=== PATIENT | male | born 1935 | race Hispanic/Latino ===

== ENCOUNTER 2018-12-06 13:33 | Emergency (ER) | payer MEDICARE ==
[~2018-12-06] VITALS: Ht 167.6 cm; Wt 72.6 kg
[~2018-12-06 13:33] MED LIST: ASPIR 8181 MG; PRAVASTATIN SOD40 MG
--- NOTE | 2018-12-06 15:15 | Diagnostic Imaging Report ---
Exam: Right elbow radiographs- 4 views Clinical History: Status post fall. Comparison: None. Findings: No evidence of acute fracture, malalignment, or soft tissue abnormality. There is triceps enthesopathy. Impression: No acute radiographic abnormality. Signed by: Dr. Jack Fishman MD on 12/06/2018 3:12 PM
--- NOTE | 2018-12-06 15:40 | Diagnostic Imaging Report ---
EXAMINATION: Head CT HISTORY: Status post fall, head trauma, forehead laceration COMPARISON: None. TECHNIQUE: Multidetector axial images were obtained without contrast from the foramen magnum to the vertex . The images were reconstructed using brain and bone algorithms. Thin section brain images were reformatted into coronal and sagittal planes. Image quality: Motion/streaking artifact limits the evaluation of the skull base and posterior cranial fossa. Dose modulation, iterative reconstruction, and/or weight based adjustment of the mA/kV was utilized to reduce the radiation dose to as low as reasonably achievable. FINDINGS: Parenchyma: 1. Prominent cortical and subcortical encephalomalacia and volume loss in the right frontal, insular, parietal and temporal lobes, with compensatory dilatation of the right lateral ventricle, likely the sequela from remote infarct in the right MCA distribution, with involvement of the right striatum nucleus, right internal capsule and caudothalamic region. Associated atrophy of the right cerebral peduncle and endy (wall area and degeneration. 2. No mass or hemorrhage. No CT evidence of acute territorial vascular insult. Extra-axial spaces:No abnormal density. No extra-axial fluid collections Brain volume: Normal for age. Ventricles: No hydrocephalus or displacement. Arteries: No density suggestive of thrombus. Dural sinuses: No abnormal density. Extra-axial spaces: No abnormal density. Foramen magnum: No mass, Chiari malformation, or basilar invagination. Sella: No obvious mass. Paranasal/mastoid sinuses: Imaged portions unremarkable. Skull/Scalp: No lytic or blastic lesions. Small left frontotemporal swelling/laceration and left superior parietal scalp swelling without underlying fractures. IMPRESSION: 1. No acute posttraumatic intracranial bleed. 2. Small left frontotemporal soft tissue swelling/laceration without underlying fractures. 3. 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 Signed by: Dr. Carito Mata M.D. on 12/06/2018 3:37 PM
--- NOTE | 2018-12-06 15:44 | Diagnostic Imaging Report ---
Exam: Cervical spine radiographs - 4 views. Clinical History: Head injury status post fall. Comparison: None. Findings: Exam somewhat limited by limited mobility. C1 through the mid aspect of C7 is visualized. The lower aspect of C7 is partially obscured. No evidence of prevertebral soft tissue edema. No evidence of acute fracture or malalignment. C1-C2 alignment is maintained. There are mild degenerative disc and facet degenerative changes of the cervical spine. There are surgical clips which project over the hypopharynx. Impression: No acute radiographic abnormality. Lower aspect of C7 is partially obscured on lateral radiograph secondary to limited patient mobility, although the frontal radiograph appears grossly unremarkable. If there is clinical concern for lower cervical bony injury, a CT may be considered for further evaluation. Mild degenerative disc and facet degenerative changes of the cervical spine. Signed by: Dr. Jack Fishman MD on 12/06/2018 3:41 PM
[2018-12-06] MEDS ORDERED: ASPIRIN 81 MG CHEW TAB PO ONE (17:15)
[2018-12-06 17:18] LABS: BASOPHILS % 0.2 % (0.0-1.0); EOSINOPHILS % 0.1 % (0.0-6.0); HEMATOCRIT 44.1 % (38.2-49.6); HEMOGLOBIN 14.5 g/dL (14.0-18.0); LYMPHOCYTES # (AUTO) 0.5 (1.0-3.2); LYMPHOCYTES % 3.7 % (18.0-39.1); MEAN CORPUSCULAR HEMOGLOBIN 27.2 pg (28-32); MEAN CORPUSCULAR HGB CONC 32.9 g/dL (31-35); MEAN CORPUSCULAR VOLUME 82.6 fL (81-99); MONOCYTES % 7.6 % (4.4-11.3); NEUTROPHILS # (AUTO) 12.1 (2.1-6.9); NEUTROPHILS % 87.7 % (38.7-80.0); PLATELET COUNT 229 x10e3/uL (140-360); RED BLOOD COUNT 5.34 x10e6/uL (4.3-5.7); RED CELL DISTRIBUTION WIDTH 14.1 % (11.7-14.4)
[2018-12-06 17:31] LABS: ANION GAP 16.8 mmol/L (8-16); CREATININE, SERUM 2.04 mg/dL (0.72-1.25); POTASSIUM 3.8 mmol/L (3.5-5.1)
[2018-12-06 17:38] LABS: CREATINE KINASE MB 2.6 ng/mL (0-5.0)
[2018-12-06 18:02] LABS: BILIRUBIN,URINE NEGATIVE (NEGATIVE); CLARITY,URINE SL CLOUDY (CLEAR); COLOR,URINE STRAW (YELLOW); KETONES,URINE NEGATIVE (NEGATIVE); LEUKOCYTE ESTERASE ,URINE NEGATIVE (NEGATIVE); NITRITE,URINE NEGATIVE (NEGATIVE); PROTEIN,URINE DIPSTICK 2+ (NEGATIVE); URINE UROBILINOGEN 0.2 mg/dL (0.2 - 1)
[2018-12-06 18:18] LABS: AMORPHOUS SEDIMENT,URINE MODERATE (FEW); BACTERIA,URINE MANY /HPF; EPITHELIAL CELLS,URINE FEW /LPF
[2018-12-06 18:42] VITALS: BP 130/70
[2018-12-06] MEDS ORDERED: CEFTRIAXONE SOD 1 GM/NS 50 ML 50 ML IV ONE (18:45)
== END 2018-12-06 19:30 | disposition home or self-care (01) ==
LOC: ER 13:33
DX: S01.112A Laceration without foreign body of left eyelid and periocular area, initial encounter (principal); M25.521 Pain in right elbow; W01.0XXA Fall on same level from slipping, tripping and stumbling without subsequent striking against object, initial encounter; Y92.008 Other place in unspecified non-institutional (private) residence as the place of occurrence of the external cause; N30.00 Acute cystitis without hematuria; K04.7 Periapical abscess without sinus; I25.10 Atherosclerotic heart disease of native coronary artery without angina pectoris
CPT/HCPCS: 36415; 70450; 72040; 73080; 80048; 81001; 82550; 82553; 84484; 85025; 87086; 93005; 99284; J0696

== ENCOUNTER 2020-04-22 04:48 | Emergency (ER) | payer MEDICARE, OTHER ==
[~2020-04-22] VITALS: Ht 167.6 cm; Wt 72.6 kg
--- NOTE | 2020-04-22 05:28 | Emergency Department Note ---
History of Present Illnes History of Present Illness Chief Complaint: COVID PUI History of Present Illness This is a 85 year old male arrives to the ED with complaints of cough shortness of breath. Patient recently discharged from [place] for bradycardia. Patient's daughter states father was complaining of congestion and dust, she states he called her today to take her to the emergency department which is not like him. Arrival Mode: Car Onset (how long ago): day(s) Duration (how long): day(s) Timing of current episode: constant Progression: worsening Chronicity: new Relieving factors: none Associated symptoms: Reports cough, Reports fever/chills, Reports headaches, Reports loss of appetite (VASILE GONZALEZ DO) Past Medical/Family History Physician Review I have reviewed the patient's past medical and family history. Any updates have been documented here. 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 HTN Other Surgery: PROSTATE CA LT CAROTID (VASILE GONZALEZ DO) Other Last Tetanus: UNKNOWN (VASILE GONZALEZ DO) Review of Systems Review of Systems Constitutional: Reports as per HPI, Reports chills, Reports diaphoresis, Reports fever, Reports malaise, Reports weakness EENTM: Reports no symptoms Cardiovascular: Reports no symptoms Respiratory: Reports as per HPI, Reports chest congestion, Reports cough, Reports pain on inspiration, Reports pain with cough, Reports dyspnea Gastrointestinal: Reports no symptoms Genitourinary: Reports no symptoms Musculoskeletal: Reports no symptoms Integumentary: Reports no symptoms Neurological: Reports no symptoms Psychological: Reports no symptoms Endocrine: Reports no symptoms Hematological/Lymphatic: Reports no symptoms (VASILE GONZALEZ, ) Physical Exam Related Data Allergies: Coded Allergies: No Known Allergies (Unverified , 12/06/18) Vital signs reviewed: Yes (VASILE GONZALEZ DO) Physical Exam CONSTITUTIONAL Constitutional: Present well-developed, Present ill appearing HENT HENT: Present normocephalic, Present atraumatic, Present oropharynx clear/moist, Present nose normal HENT L/R: Present left ext ear normal, Present right ext ear normal EYES Eyes: Reports PERRL, Reports conjunctivae normal NECK Neck: Present ROM normal PULMONARY Pulmonary: Present effort normal, Present breath sounds normal, Present respiratory distress (mild-moderate ) CARDIOVASCULAR Cardiovascular: Present regular rhythm, Present capillary refill normal, Present normal rate, Present tachycardia GASTROINTESTINAL Abdominal: Present soft, Present nontender, Present bowel sounds normal GENITOURINARY Genitourinary: Present exam deferred SKIN Skin: Present warm, Present dry MUSCULOSKELETAL Musculoskeletal: Present ROM normal NEUROLOGICAL Neurological: Present alert, Present oriented x 3, Present no gross motor or sensory deficits PSYCHOLOGICAL Psychological: Present mood/affect normal, Present judgement normal (VASILE GONZALEZ DO) Results Laboratory Lab results reviewed: Yes (VASILE GONZALEZ DO) Imaging Imaging results reviewed: Yes (VASILE GONZALEZ DO) Critical Care Time Critical care time exclusive o: separately billable procedures Critcal care necessary due to: shock (VASILE GONZALEZ DO) Assessment & Plan Medical Decision Making MDM 85-year-old male arrives the ED with cough and fever. Patient markedly hypoxic in the emergency department oxygen saturation the 40s. Concerns of Covid 19, patient with a recent hospitalization so healthcare associated pneumonia is in the differential diagnosis. Patient met SIRS criteria on arrival was suspected source in the lungs, patient rolled into septic shock with a lactic acid of 6.5 at 0600. Aggressive volume resuscitation done at 30 mg/kg with improvement noted. Bedside volume reassessment done in the emergency department with improvement in cap Refill and overall presentation appreciated. (VASILE GONZALEZ DO) Assessment & Plan Final Impression: (1) Septic shock (2) Pneumonia (VASILE GOZNALEZ DO) Home Meds Reported Medications Pravastatin Sodium (PRAVASTATIN SODIUM) 40 Mg Tablet 01/18/17 Aspirin (ASPIR 81) 81 Mg Tablet. 01/18/17 Physician Attestation Provider Attestation [facility] transport at bedside. Patient tolerated CPAP 5 cmH20 with oxygen saturation of 98%. (NIURKA HUERTA DO) VASILE GONZALEZ DO Apr 22, 2020 05:28 NIURKA HUERTA DO Apr 24, 2020 13:50
[2020-04-22 05:34] LABS: BASOPHILS # (AUTO) 0.1 (0.0-0.1); BASOPHILS % 0.7 % (0.0-1.0); EOSINOPHILS % 0.2 % (0.0-6.0); HEMATOCRIT 35.2 % (38.2-49.6); HEMOGLOBIN 11.2 g/dL (14.0-18.0); LYMPHOCYTES # (AUTO) 0.9 (1.0-3.2); LYMPHOCYTES % 7.4 % (18.0-39.1); MEAN CORPUSCULAR HEMOGLOBIN 27.4 pg (28-32); MEAN CORPUSCULAR HGB CONC 31.8 g/dL (31-35); MEAN CORPUSCULAR VOLUME 86.1 fL (81-99); MONOCYTES # (AUTO) 0.8 (0.2-0.8); MONOCYTES % 6.7 % (4.4-11.3); NEUTROPHILS # (AUTO) 9.6 (2.1-6.9); NEUTROPHILS % 78.8 % (38.7-80.0); PLATELET COUNT 182 x10e3/uL (140-360); RED BLOOD COUNT 4.09 x10e6/uL (4.3-5.7); RED CELL DISTRIBUTION WIDTH 16.4 % (11.7-14.4)
[2020-04-22] MEDS ORDERED: FUROSEMIDE INJ 10 MG/ML 2 ML VIAL IV ONE (05:45)
[2020-04-22 05:59] LABS: ALBUMIN 2.4 g/dL (3.5-5.0); ALBUMIN/GLOBULIN RATIO 0.6 (0.8-2.0); ANION GAP 21.1 mmol/L (8-16); CALCIUM 9.2 mg/dL (8.4-10.2); CREATININE, SERUM 2.05 mg/dL (0.72-1.25); POTASSIUM 4.1 mmol/L (3.5-5.1)
[2020-04-22 06:02] LABS: BILIRUBIN,URINE NEGATIVE (NEGATIVE); CLARITY,URINE CLEAR (CLEAR); COLOR,URINE YELLOW (YELLOW); KETONES,URINE NEGATIVE (NEGATIVE); LEUKOCYTE ESTERASE ,URINE NEGATIVE (NEGATIVE); NITRITE,URINE NEGATIVE (NEGATIVE); PROTEIN,URINE DIPSTICK NEGATIVE (NEGATIVE); URINE UROBILINOGEN 1 mg/dL (0.2 - 1)
[2020-04-22] MEDS ORDERED: SODIUM CHLORIDE 0.9% 500ML 500 ML IV STA (06:03)
[2020-04-22] MEDS ORDERED: SODIUM CHLORIDE 0.9% 1000ML 1,000 ML IV STA ×2 (06:03)
[2020-04-22] MEDS ORDERED: SODIUM CHLORIDE 0.9% 1000ML 0 ML ONE (06:12)
--- NOTE | 2020-04-22 06:13 | Diagnostic Imaging Report ---
Examination: Single AP view of the chest. COMPARISON: None. INDICATION: Respiratory distress IMPRESSION: 1. Lines and Tubes: None 2. Lungs are well-inflated. Mild elevation of the right hemidiaphragm, likely due to eventration. Patchy left retrocardiac and right lower lung airspace opacities, which may represent pneumonia (including viral) in the appropriate clinical setting. 3. Cardiomediastinal silhouette is normal. Central pulmonary venous congestion. 4. No acute bony abnormalities. Signed by: Dr. Emmanuel Velasquez M.D. on 04/22/2020 6:10 AM
[2020-04-22 06:14] LABS: BACTERIA,URINE FEW /HPF; MUCUS,URINE MANY (RARE); RBC,URINE 0-5 /HPF (0-5)
--- NOTE | 2020-04-22 07:24 | NUR ---
WALKING ROUNDS WITH ELIAZAR BRAY, NO FURTHER QUESTIONS FROM ONCOMING NURSE
[2020-04-22 08:21] LABS: LYMPHOCYTES % (MANUAL) 6 % (19-48); MONOCYTES % (MANUAL) 5 % (3.4-9.0); NEUTROPHILS % (MANUAL) 89 % (40-74)
--- NOTE | 2020-04-22 11:00 | NUR ---
REC'D REPORT FROM ASA RUTH FOR CONTINITY OF CARE
[2020-04-22] MEDS ORDERED: CEFTRIAXONE SOD 1 GM/NS 50 ML 50 ML IV STA (22:07)
[2020-04-22] MEDS ORDERED: AZITHROMYCIN 500MG/NS 250 ML 250 ML IV STA (22:07)
[2020-04-22] MEDS ORDERED: DEXAMETHASONE SOD PHOS 10 MG/1 ML VIAL IV ONE (22:15)
--- NOTE | 2020-04-22 23:25 | NUR ---
report recieved from cori samuel
--- NOTE | 2020-04-23 03:00 | NUR ---
patient repositioning provided
--- NOTE | 2020-04-23 07:18 | NUR ---
bedside rounds done with hammad rn, oncoming nurse has no further questions
--- NOTE | 2020-04-23 07:23 | Diagnostic Imaging Report ---
Examination: Single AP view of the chest. COMPARISON: Portable chest 04/22/2020 INDICATION: Pneumonia IMPRESSION: 1. Lines and Tubes: None 2. No interval change in patchy left retrocardiac and right lower lung airspace opacities, suggesting pneumonia. 3. Cardiomediastinal silhouette is normal. Central pulmonary venous congestion. 4. No acute bony abnormalities. Signed by: Dr. Emmanuel Velasquez M.D. on 04/23/2020 7:19 AM
[2020-04-23] MEDS ORDERED: ALBUTEROL SULFATE HFA 8GM INHALATION AEROSOL INH PRN (08:00)
[2020-04-23] MEDS: ASPIRIN 81 MG CHEW TAB PO SCH (08:27)
[2020-04-23] MEDS ORDERED: ENOXAPARIN SOD INJ 40 MG/0.4 ML SYR SC SCH (09:00)
[2020-04-23] MEDS ORDERED: DEXAMETHASONE SOD PHOS 10 MG/1 ML VIAL IV SCH (09:00)
--- NOTE | 2020-04-23 10:11 | Consultation ---
DATE OF CONSULTATION: Pulmonary Critical Care Consultation ADDITIONAL ATTENDING PHYSICIAN: Marlo Ang MD CHIEF COMPLAINT: Worsening dyspnea and cough. HISTORY OF PRESENT ILLNESS: The patient is an 85-year-old man with some chronic renal insufficiency and unexplained bradycardia. He is currently undergoing an evaluation at [facility] for this. Over the last 3 to 4 days, he has noticed increased cough and dyspnea. He does not complain of chest pain. He has no fevers. He is not having any nausea or vomiting. He came to the emergency department and had a chest x-ray that showed bilateral infiltrates suggestive of COVID. His COVID test was positive. He was initially on a nasal cannula, but has since been placed on a non-rebreather and is now on the BiPAP. PAST SURGICAL HISTORY: No prior cardiac surgery. PAST MEDICAL HISTORY: 1. Hyperlipidemia. 2. Unexplained bradycardia. 3. No prior asthma or COPD. SOCIAL HISTORY: The patient is not a smoker. He is not a drinker. ALLERGIES: THERE ARE NO KNOWN DRUG ALLERGIES. FAMILY HISTORY: Noncontributory. REVIEW OF SYSTEMS: The patient is not having fever. He does have dyspnea and cough. He has no headache or neck pain. He does not complain of chest pain. He is not complaining of palpitations. He does have dyspnea and cough. He has no abdominal pain. There is no nausea or vomiting. He has no leg swelling. PHYSICAL EXAMINATION: VITAL SIGNS: The blood pressure is 125/61, pulse is 59 and saturation is 97%. The respiratory rate is 21. He is on BiPAP at this time. He is saturating 100%. HEENT: Shows no facial swelling or erythema. CARDIAC: Reveals regular rate and rhythm with normal S1 and S2. LUNGS: Auscultation of lungs reveals crackles in the bases. There is no wheezing. ABDOMEN: Soft and nontender. There is no rebound or guarding. EXTREMITIES: Shows no leg edema or calf tenderness. There is no cyanosis or clubbing. SKIN: Shows no rashes. NEUROLOGICAL: Shows no focal abnormalities. LABORATORY DATA: The BUN to creatinine ratio is 41 to 2.05 and the carbon dioxide is 18. White blood cell count is 12.2 and hemoglobin is 11.2. The platelet count is 182. Lactic acid was initially elevated at 6.5, but is now 1.5. IMPRESSION: 1. Acute respiratory failure. 2. Viral pneumonia and COVID-19 infection. 3. Acute on chronic renal failure. 4. Hypoalbuminemia. 5. History of bradycardia. PLAN: Case discussed with nursing staff, ER, Respiratory, Nephrology, family, and Infectious Disease. Greater than 35 minutes in direct critical care time. MD DAVI Schulz/SEAN /[id number]
[2020-04-23] MEDS ORDERED: FUROSEMIDE INJ 10 MG/ML 4 ML VIAL IV ONE (10:30)
[2020-04-23 14:29] LABS: ABG HCO3 19 mmol/L (22-26); ABG PCO2 31 mmHg (35-45); ABG PO2 81 mmHg (80-105)
--- NOTE | 2020-04-23 15:25 | NUR ---
[id number] [facility] [place]
--- NOTE | 2020-04-23 15:27 | NUR ---
discussed with family s/p
[2020-04-23 17:46] LABS: BASOPHILS % 0.2 % (0.0-1.0); HEMATOCRIT 35.5 % (38.2-49.6); HEMOGLOBIN 11.4 g/dL (14.0-18.0); LYMPHOCYTES # (AUTO) 0.5 (1.0-3.2); LYMPHOCYTES % 5.4 % (18.0-39.1); MEAN CORPUSCULAR HEMOGLOBIN 26.9 pg (28-32); MEAN CORPUSCULAR HGB CONC 32.1 g/dL (31-35); MEAN CORPUSCULAR VOLUME 83.7 fL (81-99); MONOCYTES # (AUTO) 0.2 (0.2-0.8); MONOCYTES % 1.7 % (4.4-11.3); NEUTROPHILS # (AUTO) 8.4 (2.1-6.9); NEUTROPHILS % 87.8 % (38.7-80.0); PLATELET COUNT 183 x10e3/uL (140-360); RED BLOOD COUNT 4.24 x10e6/uL (4.3-5.7)
[2020-04-23 18:05] LABS: ALBUMIN 2.3 g/dL (3.5-5.0); ALBUMIN/GLOBULIN RATIO 0.5 (0.8-2.0); CALCIUM 9.4 mg/dL (8.4-10.2); CREATININE, SERUM 1.36 mg/dL (0.72-1.25)
--- NOTE | 2020-04-23 18:28 | NUR ---
SPOKE TO [facility] AT [facility] UPDATED CLINICALS GIVEN. TRANSFER STILL PENDING
[2020-04-23] MEDS ORDERED: GUAIFENESIN/CODEINE 10 ML CUP PO PRN (18:30)
[2020-04-23] MEDS ORDERED: ZOLPIDEM TARTRATE 5 MG TAB PO PRN (18:30)
[2020-04-23] MEDS ORDERED: HEPARIN SOD (PORCINE) 5,000 UNIT/ML VIAL SC SCH (21:00)
--- NOTE | 2020-04-23 22:20 | Consultation ---
DATE OF CONSULTATION: PRIMARY CARE PHYSICIAN: Dr. Ang. CONSULTING PHYSICIAN: ER doctor, Dr. Snell. REASON FOR CONSULTATION: COVID-19. HISTORY OF PRESENT ILLNESS: This is an 85-year-old gentleman, who has a history of chronic kidney disease and bradycardia. He was being seen in [place] last 4 days, comes in with cough, shortness of breath, and chest pain. There is no fever. The patient came to emergency room. Chest x-ray showed bilateral infiltrates. COVID-19 was positive. He had a nasal cannula, non-rebreather, feeling fatigued. PAST MEDICAL HISTORY: As above. Also have hyperlipidemia and coronary artery disease. PAST SURGICAL HISTORY: Denies. ALLERGIES: NKA. SOCIAL HISTORY: There is no smoking, drug abuse, or alcohol abuse. FAMILY HISTORY: Otherwise hypertension. LABORATORY DATA: Blood cultures negative. White count 12, hemoglobin 11, hematocrit 35. His COVID-19 is positive. Sodium 143, potassium 4.1 with a creatinine 2.05. MEDICATION: He is currently on dexamethasone. PHYSICAL EXAMINATION: GENERAL: Currently alert and oriented. Does not seem in acute distress. VITAL SIGNS: Stable currently. Afebrile. HEENT: He is not icteric. NECK: Supple. CHEST: Crackles bilateral. COR: S1 and soft. ABDOMEN: Soft. IMPRESSION: 1. COVID-19, concerned superimposed infection. 2. . PLAN: We will put the patient on Rocephin 1 g daily, azithromycin 500 mg daily, dexamethasone 6 mg daily, vitamin C, vitamin D, and zinc supplement. He has not kidney disease. Supportive care. Discussed with the medical team. MD REDDY Almaraz/SEAN /[id number]
--- NOTE | 2020-04-24 04:01 | Consultation ---
DATE OF CONSULTATION: Initial Nephrology Consultation REASON FOR CONSULTATION: I have been kindly asked by Dr. Snell to see this patient in regard to elevated serum creatinine of 2. HISTORY OF PRESENT ILLNESS: Mr. Johnson is an 85-year-old male. He has chronic renal failure. He presents to the hospital with some shortness of breath and increased coughing. He was found to be COVID positive. He is cocaine positive by testing and also his chest x-ray is consistent with that. On laboratory testing, his BUN and creatinine were 41 and 2.05 respectively and actually going back to his previous hospitalization in November of 2018, his serum creatinine was also about 2.04. The patient is a poor historian. PAST MEDICAL HISTORY: 1. Hyperlipidemia. 2. Probable COPD. 3. Probable chronic kidney disease. PAST SURGICAL HISTORY: Unknown. REVIEW OF SYSTEMS: As per HPI. PHYSICAL EXAMINATION: VITAL SIGNS: Blood pressure is 128/61, pulse 58, respirations 16 to 28. GENERAL: The patient is in mild respiratory distress. He is on respiratory support. HEENT: No increased JVD. CARDIOVASCULAR: Bradycardia. LUNGS: Decreased breath sounds at the bases. ABDOMEN: Positive bowel sounds. EXTREMITIES: No edema, cyanosis, or clubbing. LABORATORY RESULTS: Sodium 142, potassium 4.1, chloride 108, bicarb 18. BUN and creatinine 41 and 2.0 respectively. IMPRESSION/PLAN: 1. Chronic kidney disease stage 3. 2. Respiratory insufficiency, secondary to coronavirus disease pneumonia. 3. Coronavirus disease. 4. Decreased serum bicarbonate, most likely metabolic acidosis, given the high lactic acidosis of 6.5. PLAN: At the present time, the patient should be kept slightly in a negative fluid balance. I have given him 40 mg of Lasix IV x1. I will check a blood gas on him to confirm if this is metabolic acidosis. If it is, we will start him on sodium bicarbonate tablets. I do not want to give him any volume right now. NSAIDs, GONSALEZ-2 inhibitors, and IV contrast should be avoided. I will follow the patient with you. Thank you for this consultation. Ather MD NIKHIL Medrano/SEAN /[id number]
[2020-04-24] MEDS ORDERED: CEFTRIAXONE SOD 1 GM/NS 50 ML 50 ML IV SCH (06:00)
[2020-04-24] MEDS ORDERED: ACETAMINOPHEN 325 MG TAB PO PRN (06:30)
[2020-04-24 06:42] LABS: BASOPHILS # (AUTO) 0.1 (0.0-0.1); BASOPHILS % 0.3 % (0.0-1.0); HEMATOCRIT 33.7 % (38.2-49.6); HEMOGLOBIN 10.9 g/dL (14.0-18.0); LYMPHOCYTES # (AUTO) 0.7 (1.0-3.2); LYMPHOCYTES % 3.8 % (18.0-39.1); MEAN CORPUSCULAR HEMOGLOBIN 26.9 pg (28-32); MEAN CORPUSCULAR HGB CONC 32.3 g/dL (31-35); MEAN CORPUSCULAR VOLUME 83.2 fL (81-99); MONOCYTES % 5.3 % (4.4-11.3); NEUTROPHILS % 86.8 % (38.7-80.0); PLATELET COUNT 198 x10e3/uL (140-360); RED BLOOD COUNT 4.05 x10e6/uL (4.3-5.7); RED CELL DISTRIBUTION WIDTH 15.8 % (11.7-14.4)
[2020-04-24 06:59] LABS: ALBUMIN 2.2 g/dL (3.5-5.0); ALBUMIN/GLOBULIN RATIO 0.5 (0.8-2.0); ANION GAP 13.7 mmol/L (8-16); CALCIUM 8.6 mg/dL (8.4-10.2); CREATININE, SERUM 1.5 mg/dL (0.72-1.25); POTASSIUM 3.7 mmol/L (3.5-5.1)
[2020-04-24 07:18] LABS: MAGNESIUM 2.1 MG/DL (1.3-2.1); PHOSPHORUS 3.4 MG/DL (2.3-4.7)
--- NOTE | 2020-04-24 08:12 | NUR ---
ER PHYSICIAN SPEAKING TO DR. BAZZI WITH [facility]
[2020-04-24 08:32] LABS: INR 0.95; PROTHROMBIN TIME 13.2 seconds (11.9-14.5)
[2020-04-24 08:33] LABS: PARTIAL THROMBOPLASTIN TIME 28.5 seconds (23.8-35.5)
[2020-04-24 08:47] LABS: ABG HCO3 21 mmol/L (22-26); ABG PCO2 26 mmHg (35-45); ABG PH 7.53 (7.35-7.45); ABG PO2 135 mmHg (80-105)
--- NOTE | 2020-04-24 08:59 | Diagnostic Imaging Report ---
EXAM: CHEST SINGLE (PORTABLE) DATE: 04/24/2020 5:50 AM INDICATION: Respiratory failure COMPARISON: 04/23/2020 FINDINGS/IMPRESSION: Again identified are increased interstitial opacities bilaterally most prominent within the lower lung zones, similar to the prior examination. There is no evidence for pneumothorax or significant pleural effusion. The cardiomediastinal silhouette is stable in appearance. There has been interval increase in subcutaneous emphysema within the chest chest wall and neck. No acute osseous abnormality is identified. Signed by: Dr. Van Garcia MD on 04/24/2020 8:55 AM
[2020-04-24] MEDS ORDERED: CHOLECALCIFEROL 400 UNIT TAB PO SCH (09:00)
[2020-04-24] MEDS ORDERED: AZITHROMYCIN 500MG/NS 250 ML 250 ML IV SCH (09:00)
[2020-04-24] MEDS ORDERED: ZINC SULFATE 220 MG CAP PO SCH (09:00)
[2020-04-24] MEDS ORDERED: ASCORBIC ACID 500 MG TAB PO SCH (09:00)
--- NOTE | 2020-04-24 10:13 | Progress Note ---
DATE: Pulmonary Critical Care Progress Note SUBJECTIVE: The patient is now on a BiPAP. He appears comfortable. He is saturating 100%. He does not complain of chest pain. He is not complaining of nausea or vomiting. PHYSICAL EXAMINATION: VITAL SIGNS: The blood pressure is 143/103 and the saturation is 100%. He is breathing at 20 times a minute with a pulse of 60 to 70, and has a BiPAP of 18/10 with a backup rate of 14. HEENT: Shows no facial swelling or erythema. CARDIAC: Reveals regular rate and rhythm with normal S1 and S2. LUNGS: Auscultation of lungs reveals clear breath sounds bilaterally. There is no wheezing. ABDOMEN: Soft and nontender. There is no rebound or guarding. EXTREMITIES: Shows no leg edema or calf tenderness. There is no cyanosis or clubbing. SKIN: Shows no rashes. LABORATORY DATA: BUN to creatinine ratio is 45 to 1.50 and the CO2 is 20. The AST is 38 and albumin is 2.2. The white blood cell count is 19.6 and hemoglobin is 10.9. The platelet count is 198. RADIOGRAPHIC DATA: Chest x-ray shows bilateral opacities consistent with viral pneumonia. IMPRESSION: 1. Acute respiratory failure. 2. Viral pneumonia and COVID-19 infection. 3. [id number] renal failure. 4. Remote history of bradycardia. PLAN: 1. Repeat ABG and attempt to switch the patient to high-flow oxygen. 2. Continue current antibiotics. 3. Dexamethasone. 4. Continue to monitor renal function. 5. Echocardiogram and Cardiology evaluation. 6. Case discussed with nursing, Respiratory, Infectious Disease, administration, and family. Greater than 35 minutes in direct critical care time. Jesu Snell MD [facility]/FRANCISCOL /[id number]
[2020-04-24 10:49] LABS: ABG HCO3 24 mmol/L (22-26); ABG PCO2 33 mmHg (35-45); ABG PH 7.47 (7.35-7.45); ABG PO2 244 mmHg (80-105)
[2020-04-24] MEDS: ASPIRIN 81 MG CHEW TAB PO SCH (11:07)
--- NOTE | 2020-04-24 13:57 | NUR ---
[facility] arrived to transport patient to [facility]; [address] Pramod at the bedside with their CPAP machine; Dr Michael Campbell at [facility] also and has agreed and released the patient for stable transport to [facility]. Dr Campbell was aksed to please enter a note in this patient's chart clarifying this.
[2020-04-24 14:05] VITALS: BP 125/50
--- NOTE | 2020-04-24 14:37 | Diagnostic Imaging Report ---
EXAM: CHEST SINGLE (PORTABLE) DATE: 04/24/2020 INDICATION: Respiratory failure COMPARISON: 04/23/2020 FINDINGS/IMPRESSION: Again identified are increased interstitial opacities bilaterally most prominent within the lower lung zones, similar to the prior examination. There is no evidence for pneumothorax or significant pleural effusion. The cardiomediastinal silhouette is stable in appearance. There has been interval increase in subcutaneous emphysema within the chest chest wall and neck. No acute osseous abnormality is identified. Signed by: Dr. Van Garcia MD on 04/24/2020 2:34 PM
== END 2020-04-24 14:11 | disposition other institution (70) ==
LOC: ER 04:48
DX: U07.1 COVID-19 (principal); R65.21 Severe sepsis with septic shock; J18.9 Pneumonia, unspecified organism; R50.9 Fever, unspecified; R05 Cough; I10 Essential (primary) hypertension; K21.9 Gastro-esophageal reflux disease without esophagitis; I25.2 Old myocardial infarction; I69.354 Hemiplegia and hemiparesis following cerebral infarction affecting left non-dominant side; Z85.46 Personal history of malignant neoplasm of prostate
CPT/HCPCS: 36415; 36600; 51700; 71045 ×3; 80053; 81001; 82550; 82553; 82805; 83605; 83735; 84100; 84484; 85025; 85610; 85730; 87040; 87635; 93306; 94660; 99284; J0456; J0696 ×2; J1100 ×2; J1644; J1650; J1940; J7030; J7040